=== PATIENT | female | born 1985 | race Caucasian/White ===

== ENCOUNTER 2017-01-14 00:07 | Emergency (ER) | payer SELFPAY ==
[2017-01-14 01:31] VITALS: BP 106/68; PULSE 80; TEMP 98.8
[2017-01-14 02:01] LABS: URINE APPEARANCE SLCLOUDY; URINE BILIRUBIN NEGATIVE (NEGATIVE); URINE BLOOD NEGATIVE (NEGATIVE); URINE COLOR YELLOW; URINE GLUCOSE (UA) NEGATIVE (NEGATIVE); URINE KETONE NEGATIVE (NEGATIVE); URINE NITRITE NEGATIVE (NEGATIVE); URINE PROTEIN NEGATIVE (NEGATIVE)
[2017-01-14 03:41] LABS: BASOPHIL 0.8 % (0-2.0); EOSINOPHIL 3.5 % (0-4.5); MCH 30.9 pg (25.7-33.7); MCHC 33.1 g/dl (32.0-36.0); MEAN CELL VOLUME 93.3 fl (80-96); MEAN PLT VOLUME 7.5 fl (7.5-11.1); NEUTROPHILS 51.1 % (42.8-82.8); PLATELET COUNT 306 K/MM3 (134-434); RDW 13.8 % (11.6-15.6); WHITE BLOOD COUNT 10.6 K/mm3 (4.0-10.0)
[2017-01-14 04:02] LABS: ALBUMIN 3.9 g/dl (3.4-5.0); ANION GAP 11 (8-16); BILIRUBIN,TOTAL 0.6 mg/dL (0.2-1.0); CALCIUM 8.9 mg/dL (8.5-10.1); CO2 21 mmol/L (21-32); CREATININE 0.9 mg/dL (0.55-1.02); GLUCOSE,RANDOM 93 mg/dL (74-106); SGOT/AST 22 U/L (15-37); SGPT/ALT 59 U/L (12-78); TOT PROT 7.4 g/dl (6.4-8.2)
[2017-01-14 04:04] LABS: ALK PHOS 74 U/L (45-117)
--- NOTE | 2017-01-14 04:44 | PDOC ---
History of Present Illness - General Chief Complaint: Shortness of Breath Stated Complaint: SOB/SWELLING FEET Time Seen by Provider: 01/14/17 00:40 - History of Present Illness Initial Comments: 01/14/17 04:36 CHIEF COMPLAINT: SOB HISTORY OF PRESENT ILLNESS: 31 yo F with hx of ovarian cysts and scoliosis presents to ED with cough x 3 weeks and SOB since tonight. Patient also reports swelling to her feet b/l. She also reports a foul odor to her vagina and that " I had a condom stuck before, and I took it out, and it just smells really bad." No recent travel or sick contacts. PAST MEDICAL HISTORY: Denies past medical history FAMILY HISTORY: Denies SOCIAL HISTORY: Current smoker, 1 pack every 2-3 days. Denies alcohol, illicit drug use. SURGICAL HISTORY: Denies ALLERGIES: No known drug allergies REVIEW OF SYSTEMS General/Constitutional: Denies fever or chills. Denies weakness, weight change. HEENT: Denies change in vision. Denies ear pain or discharge. Denies sore throat. Cardiovascular: Denies chest pain or shortness of breath. Respiratory: Cough x 3 weeks. Denies wheezing, or hemoptysis. Gastrointestinal: Denies nausea, vomiting, diarrhea or constipation. Denies rectal bleeding. Genitourinary: Denies dysuria, frequency, or change in urination. Musculoskeletal: Denies joint or muscle swelling or pain. Denies neck or back pain. Skin and breasts: Denies rash or easy bruising. Neurologic: Denies headache, vertigo, loss of consciousness, or loss of sensation. PHYSICAL EXAM General Appearance: Well-appearing, appropriately dressed. No apparent distress. HEENT: EOMI, PERRLA, normal ENT inspection, normal voice, TMs normal, pharynx normal. No conjunctival pallor. No photophobia, scleral icterus. Neck: Supple. Trachea midline. No tenderness, rigidity, carotid bruit, stridor , lymphadenopathy, or thyromegaly. Respiratory/Chest: Lungs CTAB. No shortness of breath, chest tenderness, respiratory distress, accessory muscle use. No crackles, rales, rhonchi, stridor , wheezing, dullness Cardiovascular: RRR. S1, S2. No JVD, murmur, bradycardia, tachycardia. Vascular Pulses: Dorsalis-Pedis (R): 2+, Dorsalis-Pedis (L): 2+ Gastrointestinal/Abdominal: Normal bowel sounds. Abdomen soft, non-distended. No tenderness or rebound tenderness. No organomegaly, pulsatile mass, guarding , hernia, hepatomegaly, splenomegaly. Pelvic: External genitalia normal without lesions. Vaginal vault with thin, yellow/green, foul smelling discharge. Cervix is long and closed. No cervical motion tenderness. Uterus is nontender and normal in size. Adnexa are nontender and without masses. Lymphatic: No adenopathy, tenderness. Musculoskeletal/Extremities: Mild swelling to b/l feet. No pitting edema, no erythema, warmth, tenderness. Normal inspection. FROM of all extremities, normal capillary refill. Pelvis Stable. No CVA tenderness. No tenderness to extremities, pedal edema, swelling, erythema or deformity. Integumentary: Appropriate color, dry, warm. 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 Fully oriented, alert. Appropriate mood/affect. Motor strength 5/5. No appreciable EOM palsy, facial droop or sensory deficit. 01/14/17 05:41 Past History - Past Medical History Allergies/Adverse Reactions: Allergies Allergy/AdvReac Type Severity Reaction Status Date / Time ondansetron HCl Allergy Mild Hives Verified 01/14/17 00:32 [From Zofran (as hydrochloride)] ciprofloxacin [From Cipro] AdvReac Mild Nausea Verified 01/14/17 00:32 ciprofloxacin HCl AdvReac Mild Nausea Verified 01/14/17 00:32 [From Cipro] Home Medications: Ambulatory Orders Albuterol Sulfate Inhaler - [Ventolin HFA Inhaler -] 1 - 2 inh PO Q4H PRN #1 inhaler 01/14/17 Anemia: No Asthma: No Diabetes: No HTN: No Kidney Stones: Yes (KIDNEY INFECTION) - Immunization History Immunization Up to Date: Yes - Suicide/Smoking/Psychosocial Hx Smoking History: Current every day smoker Number of Cigarettes Smoked Daily: 20 Cigars Per Day: 0 Information on smoking cessation initiated: No Hx Alcohol Use: No Drug/Substance Use Hx: No Substance Use Type: Alcohol *Physical Exam - Vital Signs Last Vital Signs Temp Pulse Resp BP Pulse Ox 98.8 F 80 18 106/68 98 01/14/17 01:00 01/14/17 01:00 01/14/17 01:00 01/14/17 01:00 01/14/17 01:00 ED Treatment Course - LABORATORY CBC & Chemistry Diagram: 01/14/17 03:25 01/14/17 03:25 - ADDITIONAL ORDERS Additional order review: Laboratory Results 01/14/17 01/14/17 01/14/17 03:25 03:25 01:52 Sodium 138 Potassium 4.0 Chloride 106 Carbon Dioxide 21 Anion Gap 11 BUN 13 Creatinine 0.9 Creat Clearance w eGFR > 60 Random Glucose 93 Calcium 8.9 Total Bilirubin 0.6 AST 22 ALT 59 D Alkaline Phosphatase 74 D B-Natriuretic Peptide 5.15 Total Protein 7.4 Albumin 3.9 Urine Color Yellow Urine Appearance Slcloudy Urine pH 6.0 Urine Protein Negative Urine Glucose (UA) Negative Urine Ketones Negative Urine Blood Negative Urine Nitrite Negative Urine Bilirubin Negative Urine Urobilinogen 2.0 H Urine HCG, Qual Negative 01/14/17 03:25 RBC 4.55 MCV 93.3 MCHC 33.1 RDW 13.8 MPV 7.5 Neutrophils % 51.1 Lymphocytes % 33.0 Monocytes % 11.6 H Eosinophils % 3.5 Basophils % 0.8 - RADIOLOGY Radiology Studies Ordered: Category Date Time Status CHEST PA & LAT [RAD] Stat Radiology 01/14/17 01:36 Taken Medical Decision Making - Medical Decision Making 01/14/17 05:02 31 yo F with hx of ovarian cysts and scoliosis presents to ED with cough x 3 weeks and SOB since tonight as well as foul smelling vaginal discharge. -CXR -CBC, CMP, BNP -UA, UCx UA negative for UTI. Suspicious for Ct/GC, will treat. -azithromycin 1 g, ceftriaxone 250 mg IM Albuterol inhaler sent to pharm. Advised patient to use medication as prescribed and f/u with PCP. Advised patient of signs and symptoms for return to ER; patient verbalized understanding and agrees to plan. *DC/Admit/Observation/Transfer Diagnosis at time of Disposition: Concern about STD in female without diagnosis Acute bronchitis Qualifiers: Bronchitis organism: unspecified organism Qualified Code(s): J20.9 - Acute bronchitis, unspecified; J20.9 - Acute bronchitis, unspecified - Discharge Dispostion Disposition: HOME Condition at time of disposition: Stable Admit: No - Prescriptions Prescriptions: Albuterol Sulfate Inhaler - [Ventolin HFA Inhaler -] 1 - 2 inh PO Q4H PRN #1 inhaler PRN Reason: Short Of Breath/Wheezing - Referrals Referrals: Kuldip Gaona MD [Staff Physician] - - Patient Instructions Printed Discharge Instructions: How to Detect and Treat STDs, DI for Acute Bronchitis Additional Instructions: Please use medication as prescribed. Please follow up with a primary care doctor for further evaluation of the swelling in your feet. As discussed, please call the hospital in 2-3 days if you do not receive a call with your STD testing results. If you develop any chest pain, shortness of breath, palpitations, fever, chills, vomiting, diarrhea, or any new or worsening symptoms, please return to the ER.
[2017-01-14] MEDS ORDERED: AZITHROMYCIN 500 MG TABLET PO ONE (04:50)
[2017-01-14] MEDS ORDERED: AZITHROMYCIN 250 MG TABLET ONE (05:03)
[2017-01-14] MEDS ORDERED: LIDOCAINE HCL/PF 1% SDV 5ML VIAL ONE (05:04)
[2017-01-14] MEDS ORDERED: cefTRIAXone SODIUM 1 GM VIAL ONE (05:04)
[2017-01-14 10:34] LABS: URINE LEUK ESTERASE Negative (NEGATIVE)
== END 2017-01-14 05:46 | disposition home or self-care (01) ==
LOC: JER 00:07
DX: J20.9 Acute bronchitis, unspecified (principal); Z03.89 Encounter for observation for other suspected diseases and conditions ruled out; M41.9 Scoliosis, unspecified
CPT/HCPCS: 36415; 71020-TC; 80053; 81003; 83880; 84703; 85025; 87086; 87491; 87591; 99281-25

== ENCOUNTER 2017-05-30 19:52 | Emergency (ER) | payer SELFPAY ==
[2017-05-30 20:05] VITALS: BP 125/70; PULSE 103; TEMP 97.9; BMI 25.0
--- NOTE | 2017-05-30 20:05 | PDOC ---
Rapid Medical Evaluation Chief Complaint: Urinary Problem Time Seen by Provider: 05/30/17 20:01 Medical Evaluation: Allergies Allergy/AdvReac Type Severity Reaction Status Date / Time ondansetron HCl Allergy Mild Hives Verified 05/30/17 20:01 [From Zofran (as hydrochloride)] ciprofloxacin [From Cipro] AdvReac Mild Nausea Verified 05/30/17 20:01 ciprofloxacin HCl AdvReac Mild Nausea Verified 05/30/17 20:01 [From Cipro] 05/30/17 20:02 CC; urinary frequency, dysuria, and lower back pain x 2 weeks.. Afebrile. LMP: PE: Patient alert ox3 mild b/l CVAT. + suprapubic tenderness. Plan; CBC, CMp,.ua, UCX urine patient to the ER for further management of care.
[2017-05-30 20:48] LABS: URINE APPEARANCE CLOUDY; URINE BILIRUBIN NEGATIVE (NEGATIVE); URINE BLOOD 3+ (NEGATIVE); URINE COLOR YELLOW; URINE GLUCOSE (UA) NEGATIVE (NEGATIVE); URINE KETONE NEGATIVE (NEGATIVE); URINE NITRITE POSITIVE (NEGATIVE); URINE UROBILINOGEN NEGATIVE mg/dL (0.2-1.0)
[2017-05-30 20:52] LABS: URINE LEUK ESTERASE 2+ (NEGATIVE); URINE PROTEIN 1+ (NEGATIVE)
[2017-05-30 20:53] LABS: HCG,QUALITATIVE URINE NEGATIVE
[2017-05-30 20:56] LABS: EPI CELLS FEW /HPF (FEW); URINE BACTERIA RARE /hpf (NONE SEEN); URINE MUCUS RARE
--- NOTE | 2017-05-30 21:00 | PDOC ---
History of Present Illness - General Chief Complaint: Urinary Problem Stated Complaint: PAIN Time Seen by Provider: 05/30/17 20:01 History Source: Patient Exam Limitations: No Limitations - History of Present Illness Travel History: No Initial Comments: 05/30/17 21:27 Best Contact: Pmhx: Scoliosis, PCO S Pshx:N/A Allergies: Zofran/hives patient sensitive to Cipro/nausea vomiting LMP x2 weeks ago 31-year-old female presents to the emergency department complaining of suprapubic discomfort with burning upon urination, urgency/frequency/dysuria , bilateral flank pain without fever, chills, nausea/vomiting, abdominal discomfort, hematuria. Patient states 2 weeks ago she started off with suprapubic discomfort which progressed into burning upon urination 8 days ago and then bilateral flank pain without fever this morning. Patient states it feels similar to her previous pyelonephritis but this is the most smile she's ever had it. Timing/Duration: reports: other (x2 weeks) Abdominal Pain Onset Location: reports: suprapubic, flank (R>L) Past History - Past Medical History Allergies/Adverse Reactions: Allergies Allergy/AdvReac Type Severity Reaction Status Date / Time ondansetron HCl Allergy Mild Hives Verified 05/30/17 20:01 [From Zofran (as hydrochloride)] ciprofloxacin [From Cipro] AdvReac Mild Nausea Verified 05/30/17 20:01 ciprofloxacin HCl AdvReac Mild Nausea Verified 05/30/17 20:01 [From Cipro] Home Medications: Ambulatory Orders Phenazopyridine HCl [Pyridium -] 200 mg PO BID #2 tablet 05/30/17 Sulfamethoxazole/Trimethoprim [Bactrim Ds -] 1 tab PO BID #13 tablet 05/30/17 Anemia: No Asthma: No COPD: No Diabetes: No HTN: No Kidney Stones: Yes (KIDNEY INFECTION) - Immunization History Immunization Up to Date: Yes - Suicide/Smoking/Psychosocial Hx Smoking History: Current every day smoker Number of Cigarettes Smoked Daily: 20 Cigars Per Day: 0 Information on smoking cessation initiated: No Hx Alcohol Use: No Drug/Substance Use Hx: No Substance Use Type: Alcohol Abd/GI Specific PMHX - Complaint Specific PMHX Gall Bladder Disease: No Irritable Bowel Synd (IBS): No GI Ulcer Disease: No Review of Systems - Review of Systems Able to Perform ROS?: Yes Comments:: 05/30/17 21:30 CONSTITUTIONAL: Absent: fever, chills, diaphoresis, generalized weakness, malaise, loss of appetite HEENT: Absent: rhinorrhea, nasal congestion, throat pain, throat swelling, difficulty swallowing, mouth swelling, ear pain, eye pain, visual Changes CARDIOVASCULAR: Absent: chest pain, loss of consciousness, palpitations, irregular heart rate, peripheral edema RESPIRATORY: Absent: cough, shortness of breath, dyspnea with exertion, orthopnea, wheezing, stridor, hemoptysis GASTROINTESTINAL: Absent: abdominal pain, abdominal distension, nausea, vomiting, diarrhea, constipation, melena, hematochezia GENITOURINARY: + dysuria, frequency, urgency, hesitancy, flank pain Absent:genital pain, hematuria SKIN: Absent: rash, itching, pallor Is the patient limited Barbadian proficient: No *Physical Exam - Vital Signs Last Vital Signs Temp Pulse Resp BP Pulse Ox 97.9 F 103 H 19 125/70 98 05/30/17 20:02 05/30/17 20:02 05/30/17 20:02 05/30/17 20:02 05/30/17 20:02 - Physical Exam Comments: 05/30/17 21:31 GENERAL: Well developed, well nourished. Awake and alert. No acute distress. HEENT: Normocephalic, atraumatic. PERRLA, EOMI. No conjunctival pallor. Sclera are non- icteric. Moist mucous membranes. Oropharynx is clear. NECK: Supple. Full ROM. No JVD. Carotid pulses 2+ and symmetric, without bruits. No thyromegaly. No lymphadenopathy. CARDIOVASCULAR: Regular rate and rhythm. No murmurs, rubs, or gallops. Distal pulses are 2+ and symmetric. PULMONARY: No evidence of respiratory distress. Lungs clear to auscultation bilaterally. No wheezing, rales or rhonchi. ABDOMINAL: Soft. Non-tender. Non-distended. No rebound or guarding. No organomegaly. Normoactive bowel sounds. MUSCULOSKELETAL +CVAT Normal range of motion at all joints. No bony deformities or tenderness. EXTREMITIES: No cyanosis. No clubbing. No edema. No calf tenderness. SKIN: Warm and dry. Normal capillary refill. No rashes. No jaundice. NEUROLOGICAL: Alert, awake, appropriate. Cranial nerves 2-12 intact. No deficits to light touch and temperature in face, upper extremities and lower extremities. No motor deficits in the in face, upper extremities and lower extremities. Normoreflexic in the upper and lower extremities. Normal speech. Toes are down- going bilaterally. Gait is normal without ataxia. PSYCHIATRIC: Cooperative. Good eye contact. Appropriate mood and affect. ED Treatment Course - LABORATORY CBC & Chemistry Diagram: 05/30/17 20:45 05/30/17 20:45 - ADDITIONAL ORDERS Additional order review: Laboratory Results 05/30/17 20:10 Urine Color Yellow Urine Appearance Cloudy Urine pH 6.0 Ur Specific [place] 1.014 Urine Protein 1+ H Urine Glucose (UA) Negative Urine Ketones Negative Urine Blood 3+ H Urine Nitrite Positive Urine Bilirubin Negative Urine Urobilinogen Negative Ur Leukocyte Esterase 2+ H Urine HCG, Qual Negative *DC/Admit/Observation/Transfer Diagnosis at time of Disposition: Pyelonephritis - Discharge Dispostion Disposition: HOME Condition at time of disposition: Stable Admit: No - Prescriptions Prescriptions: Phenazopyridine HCl [Pyridium -] 200 mg PO BID #2 tablet Sulfamethoxazole/Trimethoprim [Bactrim Ds -] 1 tab PO BID #13 tablet - Referrals Referrals: Moiz Zaragoza MD [Staff Physician] - - Patient Instructions Printed Discharge Instructions: DI for Kidney Infection Additional Instructions: Increase fluids Take antibiotics as prescribed until complete You also prescribed Pyridium 200 mg. Take 1 tablet only if necessary for burn when urinating, frequently and urgency Follow-up with the urologist listed on your discharge Return back to the emergency department for severe/persistent or worsening symptoms - Post Discharge Activity
[2017-05-30 21:03] LABS: BASO % 0.6 % (0-2.0); EOS % 1.7 % (0-4.5); HEMATOCRIT 41.9 % (32.4-45.2); HEMOGLOBIN 13.8 GM/dL (10.7-15.3); LYMPH % 28.9 % (8-40); MCH 30.2 pg (25.7-33.7); MCHC 32.9 g/dl (32.0-36.0); MEAN PLT VOLUME 7.5 fl (7.5-11.1); MONO % 8.7 % (3.8-10.2); NEUT % 60.1 % (42.8-82.8); PLATELET COUNT 366 K/MM3 (134-434); RBC 4.56 M/mm3 (3.60-5.2); RDW 14.1 % (11.6-15.6); WHITE BLOOD COUNT 11.1 K/mm3 (4.0-10.0)
[2017-05-30] MEDS ORDERED: PHENAZOPYRIDINE HCL 100 MG TABLET (FP) PO ONE (21:07)
[2017-05-30] MEDS ORDERED: SODIUM CHLORIDE 1,000 ML IV STA (21:07)
[2017-05-30] MEDS ORDERED: SULFAMETHOXAZOLE/TRIMETHOPRIM 800MG/160MG D.S. TABLET PO ONE (21:08)
[2017-05-30] MEDS ORDERED: PHENAZOPYRIDINE HCL 100 MG TABLET (FP) ONE (21:16)
[2017-05-30] MEDS ORDERED: SULFAMETHOXAZOLE/TRIMETHOPRIM 800MG/160MG D.S. TABLET ONE (21:17)
[2017-05-30 21:28] LABS: ALK PHOS 79 U/L (45-117); ANION GAP 8 (8-16); BILIRUBIN,TOTAL 0.6 mg/dL (0.2-1.0); BLOOD UREA NITROGEN 9 mg/dL (7-18); CALCIUM 8.7 mg/dL (8.5-10.1); CHLORIDE 105 mmol/L (98-107); CO2 26 mmol/L (21-32); CREATININE 0.7 mg/dL (0.55-1.02); GLUCOSE,RANDOM 80 mg/dL (74-106); POTASSIUM 3.7 mmol/L (3.5-5.1); SGOT/AST 18 U/L (15-37); SGPT/ALT 23 U/L (12-78); SODIUM 139 mmol/L (136-145); TOT PROT 7.4 g/dl (6.4-8.2)
== END 2017-05-30 22:48 | disposition home or self-care (01) ==
LOC: JERFT 19:52
PROC: 3E0337Z Introduction of Electrolytic and Water Balance Substance into Peripheral Vein, Percutaneous Approach (ICD-10-PCS; principal; 2017-05-30)
DX: N10 Acute pyelonephritis (principal)
CPT/HCPCS: 36415; 80053; 81003; 81015; 84703; 85025; 87086; 87186; 99281-25

== ENCOUNTER 2017-06-02 16:20 | Emergency (ER) | payer OTHER ==
--- NOTE | 2017-06-02 16:32 | PDOC ---
Rapid Medical Evaluation Medical Evaluation: Allergies Allergy/AdvReac Type Severity Reaction Status Date / Time ondansetron HCl Allergy Mild Hives Verified 05/30/17 20:01 [From Zofran (as hydrochloride)] ciprofloxacin [From Cipro] AdvReac Mild Nausea Verified 05/30/17 20:01 ciprofloxacin HCl AdvReac Mild Nausea Verified 05/30/17 20:01 [From Cipro] 06/02/17 16:29 Pt c/o: right leg injury while at work x 2 days ago, also c/o bladder infection with dysuria, on abx day 3-4 Pt on brief exam: right foot mild edema with ecchymosis to rt ankle, ambulatory Pt ordered for : ankle xray, ua, ucx, upreg Pt to proceed to the ED <Nery Oakes - Last Filed: 06/02/17 16:29> Medical Evaluation: Allergies Allergy/AdvReac Type Severity Reaction Status Date / Time ondansetron HCl Allergy Mild Hives Verified 05/30/17 20:01 [From Zofran (as hydrochloride)] ciprofloxacin [From Cipro] AdvReac Mild Nausea Verified 05/30/17 20:01 ciprofloxacin HCl AdvReac Mild Nausea Verified 05/30/17 20:01 [From Cipro] Vital Signs Temp Pulse Resp BP Pulse Ox 98.3 F 144 H 20 138/96 100 06/02/17 16:34 06/02/17 16:34 06/02/17 16:34 06/02/17 16:34 06/02/17 16:34 <Veena Medina - Last Filed: 06/03/17 00:44> Time Seen by Provider: 06/02/17 16:27 Discharge Disposition <Nery Oakes - Last Filed: 06/02/17 16:29> <Veena Medina - Last Filed: 06/03/17 00:44> - Diagnosis Abdominal pain
[2017-06-02 16:43] VITALS: TEMP 98.3; BMI 31.8
[2017-06-02] MEDS ORDERED: SODIUM CHLORIDE 1,000 ML IV ONE (16:48)
[2017-06-02 17:36] LABS: URINE APPEARANCE CLOUDY; URINE BILIRUBIN NEGATIVE (NEGATIVE); URINE BLOOD 3+ (NEGATIVE); URINE COLOR AMBER; URINE GLUCOSE (UA) NEGATIVE (NEGATIVE); URINE KETONE TRACE (NEGATIVE); URINE NITRITE NEGATIVE (NEGATIVE)
[2017-06-02 17:39] LABS: URINE LEUK ESTERASE 2+ (NEGATIVE); URINE PROTEIN 3+ (NEGATIVE)
[2017-06-02 17:40] LABS: EPI CELLS FEW /HPF (FEW); URINE BACTERIA RARE /hpf (NONE SEEN); URINE MUCUS FEW
[2017-06-02 17:41] LABS: BASO % 0.6 % (0-2.0); EOS % 1.2 % (0-4.5); HEMATOCRIT 41.3 % (32.4-45.2); HEMOGLOBIN 13.9 GM/dL (10.7-15.3); LYMPH % 22.6 % (8-40); MCH 30.8 pg (25.7-33.7); MCHC 33.7 g/dl (32.0-36.0); MEAN CELL VOLUME 91.1 fl (80-96); MEAN PLT VOLUME 7.3 fl (7.5-11.1); MONO % 11.6 % (3.8-10.2); PLATELET COUNT 423 K/MM3 (134-434); RBC 4.53 M/mm3 (3.60-5.2); RDW 14.3 % (11.6-15.6)
[2017-06-02 17:42] LABS: HCG,QUALITATIVE URINE NEGATIVE
--- NOTE | 2017-06-02 17:44 | PDOC ---
History of Present Illness - General History Source: Patient Exam Limitations: No Limitations - History of Present Illness Initial Comments: 06/03/17 00:44 CONSTITUTIONAL: No reported: Fever, Chills, Diaphoresis, Generalized Weakness, Malaise, Loss of Appetite HEENT: No reported: Rhinorrhea, Nasal Congestion, Throat Pain, Throat Swelling, Difficulty Swallowing, Mouth Swelling, Ear Pain, Eye Pain, Visual Changes CARDIOVASCULAR: No reported: Chest Pain, Syncope, Palpitations, Irregular Heart Rate, Lightheadedness, Peripheral Edema RESPIRATORY: No reported: Cough, Shortness of Breath, SOB with Exertion, Orthopnea, Wheezing , Stridor, Hemoptysis GASTROINTESTINAL: Reported: Abdominal pain, Nausea. No reported: Abdominal Distension, Vomiting, Diarrhea, Constipation, Melena, Hematochezia GENITOURINARY: Reported: Dysuria, Frequency, Hematuria. No reported: Urgency, Hesitancy, Flank Pain, Genital Pain MUSCULOSKELETAL: No reported: Myalgia, Arthralgia, Joint Swelling, Back pain, Neck Pain SKIN: No reported: Rash, Itching, Pallor HEMEATOLOGIC/IMMUNOLOGIC: No reported: Easy Bleeding, Easy Bruising, Lymphadenopathy, Frequent infections ENDOCRINE: No reported: Unexplained Weight Gain, Unexplained Weight Loss, Heat Intolerance , Cold Intolerance NEUROLOGIC: No reported: Headache, Focal Weakness, Paresthesias, Vertigo, Lightheadedness, Unsteady Gait, Seizure, Mental Status Changes, Incontinence PSYCHIATRIC: No reported: Anxiety, Depression <AdamVeena - Last Filed: 06/03/17 00:44> - General History Source: Patient Exam Limitations: No Limitations - History of Present Illness Travel History: No Initial Comments: The patient is a 31-year-old female, with a significant past medical history of PCOS, scoliosis, and frequent UTIs, who presents to the ED with 1 week of suprapubic pain and 2 weeks of right ankle pain. The patient was seen in the ED on 05/30/17 with complaints of dysuria, increased frequency, and blood in urine. During this time the patients suprapubic pain radiated to her flank region; right-side worse than left. She was discharged with a course of Bactrim. Since taking the antibiotics, the patients flank pain resolved, but she is still complaining of suprapubic pain. She describes the pain as intermittent, sharp/ stabbing in sensation, 10/10 in severity, accompanied by nausea, but no vomiting. She reports going to the bathroom about every 30 minutes. This morning , the patient noted bright red blood in her urine. The patient states that she was previously sexually active with one partner and was not using protection. She is no longer sexually active with this person (as of 2 weeks). She reports having a copper IUD in place. 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 She was able to walk around on it, but notes that the pain worsened today and she felt some tingling. She developed distal right leg and right ankle swelling, but was able to bear weight on it, the swelling has improved significantly. The patient woke up this morning with worsened pain on her R leg. She was still able to go to work today. She reports to the ED for further evaluation. The patient denies any vaginal bleeding or vaginal discharge. She denies any fever or chills. She denies any shortness of breath or chest pain. <Jorge Alberto Lee - Last Filed: 06/03/17 03:15> - General Chief Complaint: Pain Stated Complaint: URINARY PROBLEM/RT FOOT INJURY Time Seen by Provider: 06/02/17 16:27 Past History <Veena Medina - Last Filed: 06/03/17 00:44> - Past Medical History Anemia: No Asthma: No COPD: No Diabetes: No HTN: No Kidney Stones: Yes (KIDNEY INFECTION) - Immunization History Immunization Up to Date: Yes - Suicide/Smoking/Psychosocial Hx Smoking History: Never smoked Have you smoked in the past 12 months: No Number of Cigarettes Smoked Daily: 20 Cigars Per Day: 0 Information on smoking cessation initiated: No Hx Alcohol Use: No Drug/Substance Use Hx: No Substance Use Type: Alcohol <Jorge Alberto Lee - Last Filed: 06/03/17 03:15> - Past Medical History Allergies/Adverse Reactions: Allergies Allergy/AdvReac Type Severity Reaction Status Date / Time ondansetron HCl Allergy Mild Hives Verified 05/30/17 20:01 [From Zofran (as hydrochloride)] ciprofloxacin [From Cipro] AdvReac Mild Nausea Verified 05/30/17 20:01 ciprofloxacin HCl AdvReac Mild Nausea Verified 05/30/17 20:01 [From Cipro] Home Medications: Ambulatory Orders Phenazopyridine HCl [Pyridium -] 200 mg PO BID #2 tablet 05/30/17 Sulfamethoxazole/Trimethoprim [Bactrim Ds -] 1 tab PO BID #13 tablet 05/30/17 Levofloxacin [Levaquin] 750 mg PO DAILY #5 tablet 06/03/17 Phenazopyridine HCl [Pyridium -] 100 mg PO PC PRN #3 tablet 06/03/17 Abd/GI Specific PMHX - Complaint Specific PMHX Gall Bladder Disease: No Irritable Bowel Synd (IBS): No GI Ulcer Disease: No <Jorge Alberto Lee - Last Filed: 06/03/17 03:15> *Physical Exam - Vital Signs Last Vital Signs Temp Pulse Resp BP Pulse Ox 98.3 F 106 H 18 138/96 97 06/02/17 21:19 06/02/17 21:19 06/02/17 21:19 06/02/17 16:34 06/02/17 21:19 - Physical Exam Comments: 06/03/17 00:45 GENERAL: (+)The patient is writhing around in pain and appears uncomfortable. The patient is awake, alert, and fully oriented, Nontoxic. HEAD: Normocephalic, atraumatic. EYES: extraocular movements intact, sclera anicteric, conjunctiva clear. ENT: Normal voice, Moist mucous membranes. NECK: Normal range of motion, supple LUNGS: Breath sounds equal, clear to auscultation bilaterally. No wheezes, no rhonchi, no rales. HEART: Regular rate and rhythm, without murmur, rub or gallop. ABDOMEN: (+)Suprapubic tenderness. Soft, No guarding, no rebound. No CVA tenderness PELVIC: physiologic white discharge, no CMT, no lseions, no adnexal tenderness, mil dsuprapubic tenderness EXTREMITIES: (+)Contusion to the medial aspect of the right foot with mild tenderness and ecchymosis to the surrounding area. Normal range of motion, no edema. No clubbing or cyanosis. No cords. NEUROLOGICAL: No facial assymetry, Normal speech, PSYCH: Normal mood, normal affect. SKIN: Warm, Dry, normal turgor <Veena Medina - Last Filed: 06/03/17 00:44> - Vital Signs Last Vital Signs Temp Pulse Resp BP Pulse Ox 98.3 F 144 H 20 138/96 100 06/02/17 16:34 06/02/17 16:34 06/02/17 16:34 06/02/17 16:34 06/02/17 16:34 <Jorge Alberto Lee - Last Filed: 06/03/17 03:15> Heart Score/ECG Review - ECG Impressions Comment:: 06/02/17 19:19 Twelve-lead EKG was performed and reviewed by me. There is normal sinus rhythm with a rate [address] changes suggestive of acute ischemia Impression: sinus tachycardia <Jorge Alberto Lee - Last Filed: 06/03/17 03:15> ED Treatment Course - LABORATORY CBC & Chemistry Diagram: 06/02/17 17:30 06/02/17 18:42 - ADDITIONAL ORDERS Additional order review: Laboratory Results 06/02/17 06/02/17 06/02/17 18:42 17:30 17:30 Sodium 141 Cancelled Potassium 4.0 Cancelled Chloride 109 H Cancelled Carbon Dioxide 21 Cancelled Anion Gap 11 Cancelled BUN 15 Cancelled Creatinine 1.1 H Cancelled Creat Clearance w eGFR 58.32 Cancelled Random Glucose 89 Cancelled Lactic Acid 2.0 Calcium 8.3 L Cancelled Total Bilirubin 0.5 Cancelled AST 23 Cancelled ALT 30 Cancelled Alkaline Phosphatase 75 Cancelled Total Protein 7.0 Cancelled Albumin 3.8 Cancelled Urine Color Urine Appearance Urine pH Ur Specific [place] Urine Protein Urine Glucose (UA) Urine Ketones Urine Blood Urine Nitrite Urine Bilirubin Urine Urobilinogen Ur Leukocyte Esterase Urine WBC (Auto) Urine RBC (Auto) Ur Epithelial Cells Urine Bacteria Urine Mucus Urine HCG, Qual 06/02/17 17:25 Sodium Potassium Chloride Carbon Dioxide Anion Gap BUN Creatinine Creat Clearance w eGFR Random Glucose Lactic Acid Calcium Total Bilirubin AST ALT Alkaline Phosphatase Total Protein Albumin Urine Color Priyanka Urine Appearance Cloudy Urine pH 5.0 Ur Specific [place] 1.037 H Urine Protein 3+ H D Urine Glucose (UA) Negative Urine Ketones Trace H Urine Blood 3+ H Urine Nitrite Negative Urine Bilirubin Negative Urine Urobilinogen 2.0 H Ur Leukocyte Esterase 2+ H Urine WBC (Auto) 199 Urine RBC (Auto) 340 Ur Epithelial Cells Few Urine Bacteria Rare Urine Mucus Few Urine HCG, Qual Negative 06/02/17 17:30 RBC 4.53 MCV 91.1 MCHC 33.7 RDW 14.3 MPV 7.3 L Neutrophils % 64.0 Lymphocytes % 22.6 D Monocytes % 11.6 H Eosinophils % 1.2 Basophils % 0.6 - Medications Given in the ED: ED Medications Discontinued Medications Generic Name Dose Route Start Last Admin Trade Name Ben PRN Reason Stop Dose Admin Sodium Chloride 1,000 mls @ 1,000 mls/hr 06/02/17 16:48 06/02/17 17:44 Normal Saline - IV 06/02/17 17:47 1,000 mls/hr .Q1H ONE Administration Levofloxacin 750 mg in 150 mls @ 100 mls/hr 06/02/17 20:27 06/02/17 20:56 Levaquin 750 Mg Premixed Ivpb - IVPB 06/02/17 21:56 100 mls/hr ONCE ONE Administration Sodium Chloride 500 mls @ 500 mls/hr 06/02/17 21:48 06/02/17 22:15 Normal Saline - IV 06/02/17 22:47 500 mls/hr ASDIR STA Administration Ketorolac Tromethamine 30 mg 06/02/17 18:04 06/02/17 18:49 Toradol Injection - IVPUSH 06/02/17 18:05 30 mg ONCE ONE Administration Morphine Sulfate 2 mg 06/02/17 20:27 06/02/17 20:55 Morphine Injection - IVPUSH 06/02/17 20:28 2 mg ONCE ONE Administration Morphine Sulfate 4 mg 06/02/17 22:43 06/02/17 22:49 Morphine Injection - IVPUSH 06/02/17 22:44 4 mg ONCE ONE Administration Phenazopyridine HCl 100 mg 06/02/17 20:56 06/02/17 21:49 Pyridium - PO 06/02/17 20:57 100 mg ONCE ONE Administration <Veena Medina - Last Filed: 06/03/17 00:44> - LABORATORY CBC & Chemistry Diagram: 06/02/17 17:30 06/02/17 18:42 - ADDITIONAL ORDERS Additional order review: Laboratory Results 06/02/17 17:25 Urine Color Priyanka Urine Appearance Cloudy Urine pH 5.0 Ur Specific [place] 1.037 H Urine Protein 3+ H D Urine Glucose (UA) Negative Urine Ketones Trace H Urine Blood 3+ H Urine Nitrite Negative Urine Bilirubin Negative Urine Urobilinogen 2.0 H Ur Leukocyte Esterase 2+ H Urine WBC (Auto) 199 Urine RBC (Auto) 340 Ur Epithelial Cells Few Urine Bacteria Rare Urine Mucus Few Urine HCG, Qual Negative <Jorge Alberto Lee - Last Filed: 06/03/17 03:15> Medical Decision Making - Medical Decision Making 06/02/17 17:43 31y F hx of pcos, scoliosis, presents with 'bladder pain' and R ankle pain. pt was seen on 05/30 with dysuria/frequency and dx with UTI started on course of abx. Pt notes her pain radiatied to her flanks. pain is sharp and stabbing. pt notes heamturia in urine. pt notes frequent episodes of UTIs in the past. pt denies any fever/chills, vomiting, cp, sob pt notes that she also dropped a 90lb weight on her R foot last week. was ambulatory after that, but was swollen/bruised and was able to bear weight. pain was worse today when she woke and thought it was numb 06/02/17 19:21 ddx - uti, pyelo, kidney stones/infected stone will r/o fx with her foot will give toradol labs [t was notably tachycardic - may be secondayr to pain/discomort will hdyrate w fluids 06/03/17 01:32 pt feeling improved abd soft but still with minimal suprapubic tenderness, bu t i suspect this is due to her cystitis repeat vitals significantly improved will dc with levaquin and pyridium and pmd fu return precautions were discussed I discussed the physical exam findings, ancillary test results and final diagnoses with the patient. I answered all of the patient's questions. The patient was satisfied with the care received and felt comfortable with the discharge plan and treatment plan. The patient will call their primary care physician within 24 hours to arrange follow-up and will return to the Emergency Department with any new, persistent or worsening symptoms. <Jorge Alberto Lee - Last Filed: 06/03/17 03:15> *DC/Admit/Observation/Transfer - Attestations Scribe Attestion: 06/03/17 00:46 Documentation prepared by Veena Medina, acting as medical records library professor for Jorge Alberto Lee MD. <Veena Medina - Last Filed: 06/03/17 00:44> - Discharge Dispostion Admit: No <Jorge Alberto Lee - Last Filed: 06/03/17 03:15> Diagnosis at time of Disposition: Urinary tract infection Qualifiers: Urinary tract infection type: acute cystitis Hematuria presence: with hematuria Qualified Code(s): N30.01 - Acute cystitis with hematuria - Discharge Dispostion Disposition: HOME Condition at time of disposition: Improved - Prescriptions Prescriptions: Levofloxacin [Levaquin] 750 mg PO DAILY #5 tablet Phenazopyridine HCl [Pyridium -] 100 mg PO PC PRN #3 tablet PRN Reason: Pain - Referrals Referrals: Paulino Phelan MD [Staff Physician] - - Patient Instructions Printed Discharge Instructions: DI for Acute Cystitis Additional Instructions: Return to the emergency department immediately with ANY new, persistent or worsening symptoms including any fevers, chills, persistent pain, vomiting or other concerns. Take the antibiotics as prescribed. You MUST call and follow up with your doctor next week for further evaluation of your symptoms. Results were discussed with you. Please make sure your doctor reviews the results of your emergency evaluation. Print Language: BELARUSIAN - Post Discharge Activity Forms/Work/School Notes: Back to Work
[2017-06-02] MEDS ORDERED: KETOROLAC TROMETHAMINE 30 MG/1 ML VIAL IVPUSH ONE (18:04)
[2017-06-02] MEDS ORDERED: KETOROLAC TROMETHAMINE 30 MG/1 ML VIAL ONE ×2 (18:45→23:25)
[2017-06-02 19:39] LABS: ALBUMIN 3.8 g/dl (3.4-5.0); ALK PHOS 75 U/L (45-117); ANION GAP 11 (8-16); BILIRUBIN,TOTAL 0.5 mg/dL (0.2-1.0); BLOOD UREA NITROGEN 15 mg/dL (7-18); CALCIUM 8.3 mg/dL (8.5-10.1); CHLORIDE 109 mmol/L (98-107); CO2 21 mmol/L (21-32); CREATININE 1.1 mg/dL (0.55-1.02); GLUCOSE,RANDOM 89 mg/dL (74-106); SGOT/AST 23 U/L (15-37); SGPT/ALT 30 U/L (12-78); SODIUM 141 mmol/L (136-145)
[2017-06-02] MEDS ORDERED: morphine CARPU-JECT 2 MG/1 ML DISP.SYRIN IVPUSH ONE (20:27)
[2017-06-02] MEDS ORDERED: MORPHINE SULFATE 10 MG/1 ML *VIAL ONE ×2 (20:40→22:51)
[2017-06-02] MEDS ORDERED: PHENAZOPYRIDINE HCL 100 MG TABLET (FP) PO ONE (20:56)
[2017-06-02] MEDS ORDERED: PHENAZOPYRIDINE HCL 100 MG TABLET (FP) ONE (21:47)
[2017-06-02] MEDS ORDERED: SODIUM CHLORIDE 500 ML IV STA (21:48)
[2017-06-02] MEDS ORDERED: morphine CARPU-JECT 4 MG/1 ML DISP.SYRIN IVPUSH ONE (22:43)
[2017-06-03 01:47] VITALS: BP 132/80; PULSE 95
--- NOTE | 2017-06-03 10:04 | EKG ---
Test Reason : Blood Pressure : / mmHG Vent. Rate : 109 BPM Atrial Rate : 109 BPM P-R Int : 144 ms QRS Dur : 070 ms QT Int : 338 ms P-R-T Axes : 070 064 061 degrees QTc Int : 455 ms SINUS TACHYCARDIA POSSIBLE LEFT ATRIAL ENLARGEMENT NO PREVIOUS ECGS AVAILABLE Confirmed by NAIF CRAVEN MD ([id number]) on 06/03/2017 10:04:26 AM Referred By: Confirmed By:NAIF CRAVEN MD
--- NOTE | 2017-06-04 07:50 | PDOC ---
Patient Follow-up (Call Back) - Post ED Follow - Up Chief Complaint: Pain Condition at time of discharge: Improved Disposition at time of original discharge: HOME Reason for Call Back: Abnwl. Microbiology (Sensitivity for UC on 05/30/17 showed resistance to bactrim. Pt. was placed on Levoquin on d/c. Now appropriately covered.)
== END 2017-06-03 01:48 | disposition home or self-care (01) ==
LOC: JER 16:20
PROC: 3E0337Z Introduction of Electrolytic and Water Balance Substance into Peripheral Vein, Percutaneous Approach (ICD-10-PCS; principal; 2017-06-02)
PROC: 3E03329 Introduction of Other Anti-infective into Peripheral Vein, Percutaneous Approach (ICD-10-PCS; 2017-06-02)
PROC: 3E033NZ Introduction of Analgesics, Hypnotics, Sedatives into Peripheral Vein, Percutaneous Approach (ICD-10-PCS; 2017-06-02)
PROC: 3E033GC Introduction of Other Therapeutic Substance into Peripheral Vein, Percutaneous Approach (ICD-10-PCS; 2017-06-02)
DX: N30.01 Acute cystitis with hematuria (principal); S90.01XA Contusion of right ankle, initial encounter; W20.8XXA Other cause of strike by thrown, projected or falling object, initial encounter; Y93.89 Activity, other specified; Y92.69 Other specified industrial and construction area as the place of occurrence of the external cause; Y99.0 Civilian activity done for income or pay
CPT/HCPCS: 36415; 73590-TC-RT-FY; 73610-TC-RT-FY; 74176; 80053; 81003; 81015; 83605; 84703; 85025; 87086; 87186; 87389; 87491; 87591; 93005; 93010; 99285-25